=== PATIENT | male | born 1985 | race Two or more races ===

== ENCOUNTER 2018-04-05 12:12 | Emergency (ER) | payer BC ==
[~2018-04-05] VITALS: Ht 188 cm; Wt 123.8 kg
[2018-04-05 12:22] VITALS: Ht 188 cm; Wt 123.8 kg
[2018-04-05 13:19] LABS: PLATELET COUNT 206 x10^3mcL (130-400); RED CELL DISTRIBUTION WIDTH 12.3 % (11.5-14.5)
[2018-04-05 13:28] LABS: CALCIUM 8.7 mg/dL (8.5-10.1); CARBON DIOXIDE 26.5 mmol/L (21-32); CHLORIDE SERUM 100 mmol/L (98-107); CREATININE SERUM 1.1 mg/dL (0.7-1.3); GFR1 > 60 mL/min; GLUCOSE SERUM 82 mg/dL (74-106); POTASSIUM SERUM 3.4 mmol/L (3.5-5.1); SODIUM SERUM 133 mmol/L (136-145)
[2018-04-05 13:31] LABS: BASOPHIL % 0 % (0-2)
[2018-04-05 14:11] LABS: microscopic required? YES; urine erythrocyte 3+ (NEGATIVE)
[2018-04-05 16:47] VITALS: BP 137/79
== END 2018-04-05 17:06 | disposition home or self-care (01) ==
LOC: ED 12:12
PROVIDERS: Emergency Medicine
DX: S46.212A Strain of muscle, fascia and tendon of other parts of biceps, left arm, initial encounter (principal); S46.211A Strain of muscle, fascia and tendon of other parts of biceps, right arm, initial encounter; M25.512 Pain in left shoulder; M25.511 Pain in right shoulder; X58.XXXA Exposure to other specified factors, initial encounter; Y93.89 Activity, other specified; Y92.39 Other specified sports and athletic area as the place of occurrence of the external cause; Y99.8 Other external cause status
CPT/HCPCS: 36415; J7030